=== PATIENT | female | born 1945 | race Caucasian/White ===

== ENCOUNTER 2018-02-07 03:32 | Emergency (ER) | payer MEDICARE, OTHER, MEDICAID ==
[~2018-02-07] VITALS: Ht 167.6 cm; Wt 121.1 kg
[2018-02-07] MEDS ORDERED: HUMALOG100 UNIT/2 SUB-Q (03:52)
[2018-02-07] MEDS ORDERED: ASPIR-LOW81 MG PO (03:52)
[2018-02-07] MEDS ORDERED: XANAX0.5 MG PO (03:54)
[2018-02-07] MEDS ORDERED: B-121000 MC2 PO (03:55)
[2018-02-07] MEDS ORDERED: D-20002000 UNIT PO (03:55)
[2018-02-07] MEDS ORDERED: CYMBALTA60 MG PO (03:56)
[2018-02-07] MEDS ORDERED: BYDUREON P2 MG/0.65 SUB-Q (03:56)
[2018-02-07] MEDS ORDERED: HYDRALAZINE HCL10 MG PO (03:57)
[2018-02-07] MEDS ORDERED: FUROSEMIDE40 MG PO (03:57)
[2018-02-07] MEDS ORDERED: NORCO 5-325 TA1 EACH PO (03:58)
[2018-02-07] MEDS ORDERED: LANTUS SOL100 UNIT/1 SUB-Q (03:58)
[2018-02-07] MEDS ORDERED: MAGNESIUM400 M1 PO (03:59)
[2018-02-07] MEDS ORDERED: METFORMIN HCL1000 M1 PO (03:59)
[2018-02-07] MEDS ORDERED: LEVOTHYROXINE112 MCG PO (03:59)
[2018-02-07] MEDS ORDERED: ACCUPRIL20 MG PO (04:00)
[2018-02-07] MEDS ORDERED: CEPHALEXIN500 MG PO (05:34)
== END 2018-02-07 05:41 | disposition home or self-care (01) ==
LOC: ED 03:32
DX: N39.0 Urinary tract infection, site not specified (principal); E11.9 Type 2 diabetes mellitus without complications; I10 Essential (primary) hypertension; Z87.891 Personal history of nicotine dependence; Z88.5 Allergy status to narcotic agent; Z88.8 Allergy status to other drugs, medicaments and biological substances; Z79.82 Long term (current) use of aspirin; Z79.4 Long term (current) use of insulin; Z79.899 Other long term (current) drug therapy
CPT/HCPCS: 71046; 81001; 99283